=== PATIENT | female | born 1955 | race Caucasian/White ===

== ENCOUNTER 2024-10-18 15:16 | Outpatient (AMB) | payer MEDICARE, MEDICAID, SELFPAY ==
--- NOTE | 2024-10-18 15:22 | A.OFFVIS_ITS ---
Intake Visit Reasons: Last seen 06/28/24 per eCW. 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 Family reported that she was having episodes of unresponsiveness and shaking. One time she was in bathroom and the other time, she was sitting in a chair. Shaking lasted for a few seconds. She was unable to talk for a few seconds. EEG revealed left hemispheric sharp waves. She is presenting with seizures. Her recent hospital admission at [facility] was preceded by episodes of lightheadedness and dizziness, after which she exhibited twitching and brief loss of awareness. Unlike past episodes, which included symptoms of vomiting and headaches, this occasion was marked by zoning out incidents and non-responsiveness with associated groaning sounds. The patient has a known cognitive impairment, further complicating her management, as there's an apparent issue with adherence to her medication schedule. She received new anticonvulsant therapy in the hospital, which necessitates regularity for optimal effects. Hydration is also a significant concern, as inadequate intake may exacerbate her symptoms or interfere with her treatment plan. [facility] Medical History (Updated 10/18/24 @ 15:24 by Malik Brewer MD) Seizure disorder Asthma Arthritis Depression with anxiety Obesity Migraine without aura Review of Systems Const Details: - Neurological: Reports dizziness, twitching, and episodes of non- responsiveness. - Psychiatric: Reports cognitive difficulties in medication adherence. - Fluid/Blood/Electrolyte: Reports possible dehydration; family notes issues with hydration. Physical Exam Neuro Other: Mental Status: Alert and oriented to person, place, and time. Normal attention. Normal spontaneous speech, fluency, and comprehension. Cranial Nerves: CN II: Visual bell full to confrontation, visual acuity intact. CN III, IV, : Pupils equal, round, reactive to light and accommodation. Extraocular movements are normal. CN V: Facial sensation is normal. CN VII: Facial movements symmetrical. CN VIII: Hearing intact to bedside conversation is normal. CN IX, X: Palate elevates symmetrically. CN XI: Shoulder shrug and head turn symmetrical. CN XII: Tongue midline without atrophy or fasciculations. Extrapyramidal: Full facial expressions and blinking. No rigidity. Movements are appropriate with no tremor or abnormality. Speech: Normal; no dysarthria or tremor. Assessment & Plan Assessment & Plan (1) Migraine without aura: Code(s): G43.009 - Migraine without aura, not intractable, without status migrainosus Category: Medical Qualifiers: Status migrainosus presence: without status migrainosus Intractability: not intractable Qualified Code(s): G43.009 - Migraine without aura, not intractable, without status migrainosus (2) Seizure disorder: Comment: 48 hr EEG at [facility] in 2024: Abn with L sided epileptic discharges Routine EEG at off in Nov 2023: WNL CT brain and neck at [facility] in Jan 2021: very limited due to motion, ?MVD Code(s): G40.909 - Epilepsy, unspecified, not intractable, without status epilepticus Category: Medical (3) Learning disability: Code(s): F81.9 - Developmental disorder of scholastic skills, unspecified Category: Social Hx Plan Impression: a: Complex partial seizure disorder b: Migraine Rec: a: Levetiracetam 750mg bid started at [facility] where she recently went after a seizure b; Topiramate 50mg one at night Medications: Refilled topiramate 50 mg PO DAILY 90 tabs 1RF 90 days Coding Level of Care Code Est Pt Level 4 (31492) Diagnoses Migraine without aura and without status migrainosus, not intractable G43.009 Status migrainosus presence: without status migrainosus Intractability: not intractable Seizure disorder G40.909 Learning disability F81.9
--- OUTSIDE RECORDS SUMMARY | 2024-10-18 16:53 | XMS_ITS | Clinical Summary ---
Author Organization [facility] Address [address] [place] [address] Phone Care Team Providers Care Firebreak Cutter Name Role Phone Physician, No Pcp Primary Care Provider Unavaila ble Social History Tobacco Use Types Packs/Day Years Used Date Smoking Tobacco: Never Assessed Comments Unknown Sex and Gender Information Value Date Recorded Sex Assigned at Not on file Legal Sex Female 8:49 AM EST Gender Identity Not on file Sexual Orientation Not on file Plan of Treatment Health Maintenance Due Date Last Done Comments Breast Cancer Screening 1955 DTaP,Tdap,and Td Vaccines (1 - Tdap) 10/30/1974 Pneumococcal Vaccine: 50+ Years (1 of 1 - PCV) 10/30/2005 Zoster Vaccines (1 of 2) 10/30/2005 COVID-19 Vaccine ( - 2023-2 5 season) 2023 10/23/2020, 09/18/2020 Colorectal Cancer Screening: Colonoscopy 12/31/2023 Falls Risk Assessment 12/31/2023 Hepatitis C Screening 12/31/2023 Medicare Annual Wellness Visit 12/31/2023 Osteoporosis Screening (Bone Density Screening) 12/31/2023 Social Influencers of Health Screening 12/31/2023 Depression Screening 02/25/2024 Influenza Vaccine (#1) 2024 3, 12/17/2021 RSV Immunization Adult Patients (1 - 1-dose 75+ series) 10/30/2030 HIB Vaccines Aged Out No longer eligi ble based on patient's age to complete this topic HPV Vaccines Aged Out No longer eligi ble based on patient's age to complete this topic Hepatitis A Vaccines Aged Out No long er eligible based on patient's age to complete this topic Hepatitis B Vaccines Aged Out No long er eligible based on patient's age to complete this topic IPV Vaccines Aged Out No longer eligi ble based on patient's age to complete this topic MMR Vaccines Aged Out No longer eligi ble based on patient's age to complete this topic Meningococcal ACWY Vaccine Aged Out N o longer eligible based on patient's age to complete this topic Meningococcal B Vaccine Aged Out No l onger eligible based on patient's age to complete this topic RSV Immunization Patients Under 20 months Aged Out No longer eligible b ased on patient's age to complete this topic Varicella Vaccines Aged Out No longer eligible based on patient's age to complete this topic Insurance MEDICAID - [place] MEDICARE Care Teams Firebreak Cutter Relationship Specialty Start Date End Date Physician, No Pcp PCP - General 06/07/24
== END 2024-10-18 15:33 | disposition home or self-care (01) ==
LOC: HO.HSM 15:16
PROVIDERS: PCP Internal Medicine; Visit Provider Psychiatry & Neurology Neurology
DX: G43.009 Migraine without aura, not intractable, without status migrainosus (principal); G40.909 Epilepsy, unspecified, not intractable, without status epilepticus; F81.9 Developmental disorder of scholastic skills, unspecified
CPT/HCPCS: 99214

== ENCOUNTER → 2024-10-18 15:16 | Outpatient (BNVA) | payer MEDICARE, MEDICAID, SELFPAY | PROVIDERS: PCP Internal Medicine; Visit Provider Psychiatry & Neurology Neurology | DX: G43.009 Migraine without aura, not intractable, without status migrainosus (principal); G40.909 Epilepsy, unspecified, not intractable, without status epilepticus; F81.9 Developmental disorder of scholastic skills, unspecified | CPT/HCPCS: 99212 ==